=== PATIENT | male | born 1975 | race Hispanic/Latino ===

== ENCOUNTER 2020-01-03 20:04 | Emergency (ER) | payer SELFPAY ==
[2020-01-03] MEDS ORDERED: CYCLOBENZAPRINE 10 MG TAB PO ONE (22:14)
[2020-01-03] MEDS ORDERED: BUTALB/ACETAMINOPHEN/CAFFEINE TAB PO ONE (22:14)
[2020-01-03] MEDS ORDERED: ONDANSETRON 4 MG ODT TAB PO ONE (22:15)
--- NOTE | 2020-01-03 22:19 | Event Note ---
ED Screening Note Date of service: 01/03/20 Time: 22:15 ED Screening Note: Patient is a 44 yo WM with no past medical history who presents to the ED with acute onset onset persistent right temporal severe headache with nausea, vomiting, photophobia and blurry vision for the last 8 hours. Patient denies syncope, chest pain, dizziness, vision loss, cough, dyspnea, fever, chills, abdominal pain, palpitations or cough. In the triage, patient is alert and oriented x 3 and appears to be in pain, but not in distress. This initial assessment/diagnostic orders/clinical plan/treatment(s) is/are subject to change based on patients health status, clinical progression and re- assessment by fellow clinical providers in the ED. Further treatment and workup at subsequent clinical providers discretion. Patient/guardian urged not to elope from the ED as their condition may be serious if not clinically assessed and managed. Initial orders include: Head CT scan w/o contrast, Fioricet, zofran, flexeril
--- NOTE | 2020-01-03 22:58 | Cat Scan Report ---
CT HEAD WITHOUT CONTRAST INDICATION : severe headache. TECHNIQUE: Axial, coronal and sagittal CT imaging was performed from the skull apex through the skul l base without contrast. All CT scans at this location are performed using CT dose reduction for ALA RA by means of automated exposure control. COMPARISON: None available. FINDINGS: PARENCHYMA: No mass, midline shift, hemorrhage, extraaxial collection or acute territorial infarctio n. VENTRICLES: Symmetric and normal in size. SOFT TISSUES: No significant abnormality of the included soft tissues/orbits. BONES: No acute osseous abnormality. SINUSES: No significant abnormality. ADDITIONAL FINDINGS: None. IMPRESSION: 1. No acute intracranial abnormality. Signer Name: José Rizzo MD Signed: 01/03/2020 10:53 PM Workstation Name: [id number]
[2020-01-04 00:25] VITALS: BP 145/93
[2020-01-04] MEDS ORDERED: amLODIPine 5 MG TAB PO ONE (00:25)
[2020-01-04] MEDS ORDERED: BUTALB/ACETAMINOPHEN/CAFFEINE TAB ONE (00:33)
--- NOTE | 2020-01-04 00:34 | Emergency Department Report ---
HPI - General Chief Complaint: High BP Time Seen by Provider: 01/04/20 00:18 - HPI HPI: Room 32 The pt is a 44 y/o M p/w a cc of htn and KHOURY. The pt states he's had a frontal KHOURY since this afternoon. Pt denies recent trauma. Pt admits to n/v. Pt denies f ever. Pt gives his pain a score of 10/10 ED Past Medical Hx - Past Medical History Previous Medical History?: No - Surgical History Past Surgical History?: No - Family History Family history: no significant - Social History Smoking Status: Current Every Day Smoker (1/2 ppd) Substance Use Type: None - Medications Home Medications: Home Medications Medication Instructions Recorded Confirmed Last Taken Type Butalb/Acetaminophen/Caffeine 1 cap PO Q6HR PRN #14 cap 12/22/19 Unknown Rx [Fioricet 50-300-40 mg CAP] Butalb/Acetamin/Caff 50-325-40 2 tab PO Q6HR PRN #10 tab 01/04/20 Unknown Rx [Fioricet 50-325-40] amLODIPine 5 mg PO DAILY #60 tab 01/04/20 Unknown Rx ED Review of Systems ROS: Stated complaint: HEADACHE/HYPERTENSION Other details as noted in HPI Constitutional: denies: fever Eyes: denies: eye pain ENT: denies: throat pain Respiratory: no symptoms reported Cardiovascular: denies: chest pain Endocrine: no symptoms reported Gastrointestinal: nausea, vomiting Musculoskeletal: denies: back pain Neurological: headache Physical Exam - Physical Exam Vital Signs: Vital Signs 01/03/20 01/04/20 20:11 00:24 Temperature 97.6 F Pulse Rate 83 80 Respiratory 14 20 Rate Blood Pressure 143/110 Blood Pressure 145/93 [Right] O2 Sat by Pulse 97 98 Oximetry Physical Exam: GEN: WD WN M sleeping in chair in NAD HEENT: NCAT, EOMI NECK:Trachea midline, no stridor CV: rrr no m/r/g Pulm: CTAB. no resp distress ABD: s/nt/nd +BS Neuro: GCS 15, CN 2-12 GI, no drift SKIN: no diaphoresis MS: no evidence of acute injury ED Course Vital Signs 01/03/20 01/04/20 20:11 00:24 Temperature 97.6 F Pulse Rate 83 80 Respiratory 14 20 Rate Blood Pressure 143/110 Blood Pressure 145/93 [Right] O2 Sat by Pulse 97 98 Oximetry ED Medical Decision Making - Radiology Data Radiology results: report reviewed (ct head), image reviewed (ct head) [facility] [address] [place] [address] Cat Scan Report Signed Patient: MACK HAWK MR#: [id number] : 1975 Acct:[id number] Age/Sex: 44 / M ADM Date: 01/03/20 Loc: ED Attending Dr: Ordering Physician: NISHANT DUKES Date of Service: 01/03/20 Procedure(s): CT head/brain wo con Accession Number(s): [id number] cc: NISHANT DUKES CT HEAD WITHOUT CONTRAST INDICATION : severe headache. TECHNIQUE: Axial, coronal and sagittal CT imaging was performed from the skull apex through the skull base without contrast. All CT scans at this location are performed using CT dose reduction for ALARA by means of automated exposure control. COMPARISON: None available. FINDINGS: PARENCHYMA: No mass, midline shift, hemorrhage, extraaxial collection or acute territorial infarction. VENTRICLES: Symmetric and normal in size. SOFT TISSUES: No significant abnormality of the included soft tissues/orbits. BONES: No acute osseous abnormality. SINUSES: No significant abnormality. ADDITIONAL FINDINGS: None. IMPRESSION: 1. No acute intracranial abnormality. Signer Name: José Rizzo MD Signed: 01/03/2020 10:53 PM Workstation Name: [id number] Transcribed By: MN Dictated By: José Rizzo MD Electronically Authenticated By: José Rizzo MD Signed Date/Time: 01/03/202252 DD/ 50 TD/TT: - Differential Diagnosis hypertensive urgency, ICH Critical care attestation.: If time is entered above; I have spent that time in minutes in the direct care of this critically ill patient, excluding procedure time. ED Disposition Clinical Impression: Headache, Hypertension Disposition: DC-01 TO HOME OR SELFCARE Is pt being admited?: No Does the pt Need Aspirin: No Condition: Stable Instructions: Hypertension (ED) Prescriptions: amLODIPine 5 mg PO DAILY #60 tab Butalb/Acetamin/Caff 50-325-40 [Fioricet 50-325-40] 2 tab PO Q6HR PRN #10 tab PRN Reason: Headache Referrals: PRIMARY CARE,MD [Primary Care Provider] - 3-5 Days [facility] [Outside] - 3-5 Days Time of Disposition: 00:39
== END 2020-01-04 00:49 | disposition home or self-care (01) ==
LOC: ED 20:04
DX: I10 Essential (primary) hypertension (principal); F17.200 Nicotine dependence, unspecified, uncomplicated; Z79.899 Other long term (current) drug therapy
CPT/HCPCS: 70450